=== PATIENT | female | born 1980 | race American Indian/Alaskan Native ===

== ENCOUNTER 2020-07-25 13:42 | Emergency (ER) | payer SELFPAY ==
[2020-07-25 14:58] VITALS: BP 125/81
--- NOTE | 2020-07-25 15:00 | Emergency Department Report ---
ED Upper Extremity Inj HPI - General Chief Complaint: Extremity Injury, Upper Stated Complaint: RT ARM SHOOTING PAIN Time Seen by Provider: 07/25/20 14:31 Source: patient Mode of arrival: Ambulatory Limitations: No Limitations - History of Present Illness Initial Comments: This is a 39-year-old female nontoxic, well nourished in appearance, no acute signs of distress presents to the ED with c/o of right wrist pain x 2 days. Patient stated she was heavy lifting and started to have pains and now has some radiation to right upper shoulder Patient denies any new trauma. Stated has some decreased ROM due to pain but denies joint swelling, redness, or abnormal gait. Denies any fever, chills, nausea, vomiting, headache, stiff neck, chest pain or shortness of breath. Patient denies any numbness or tingling. Denies any allergies. MD Complaint: Injury to:: right, wrist -: days(s) Other Extremity Injury: Wrist: Right Other Injuries: none Severity scale (0 -10): 3 Improves With: immobilization Worsens With: movement of extremity Associated Symptoms: denies other symptoms. denies: weakness, numbness, neck pain, suspects foreign body, nausea/vomiting, heard/felt popping sensat - Related Data Previous Rx's Medication Instructions Recorded Last Taken Type Naproxen 500 mg PO Q12H PRN #12 tablet 07/25/20 Unknown Rx Allergies Allergy/AdvReac Type Severity Reaction Status Date / Time No Known Allergies Allergy Unverified 07/25/20 14:11 ED Review of Systems ROS: Stated complaint: RT ARM SHOOTING PAIN Other details as noted in HPI Constitutional: denies: chills, fever Eyes: denies: eye pain, eye discharge, vision change ENT: denies: ear pain, throat pain Respiratory: denies: cough, shortness of breath, wheezing Cardiovascular: denies: chest pain, palpitations Endocrine: no symptoms reported Gastrointestinal: denies: abdominal pain, nausea, diarrhea Genitourinary: denies: urgency, dysuria, discharge Musculoskeletal: denies: back pain, joint swelling, arthralgia Skin: denies: rash, lesions Neurological: denies: headache, weakness, paresthesias Psychiatric: denies: anxiety, depression Hematological/Lymphatic: denies: easy bleeding, easy bruising ED Past Medical Hx - Past Medical History Previous Medical History?: No - Surgical History Past Surgical History?: No - Medications Home Medications: Home Medications Medication Instructions Recorded Confirmed Last Taken Type Naproxen 500 mg PO Q12H PRN #12 tablet 07/25/20 Unknown Rx ED Physical Exam - General Limitations: No Limitations General appearance: alert, in no apparent distress - Head Head exam: Present: atraumatic, normocephalic - Neck Neck exam: Present: normal inspection, full ROM. Absent: tenderness, meningismus, lymphadenopathy - Extremities Exam Extremities exam: Present: normal inspection, full ROM, tenderness, normal capillary refill. Absent: joint swelling - Expanded Upper Extremity Exam Right General: Present: normal inspection Shoulder Exam: Present: normal inspection, full ROM. Absent: tenderness, swelling Upper Arm exam: Present: normal inspection, full ROM. Absent: tenderness, swelling Elbow exam: Present: normal inspection, full ROM. Absent: tenderness, swelling Forearm Wrist exam: Present: normal inspection, full ROM. Absent: tenderness, swelling Hand Wrist exam: Present: full ROM, tenderness. Absent: swelling, abrasion, laceration, ecchymosis, deformity, crepidus, dislocation, erythema, amputation, nail avulsion, subungual hematoma Vascular: Present: normal capillary refill. Absent: vascular compromise ( neurovascular intact) - Back Exam Back exam: Present: normal inspection, full ROM. Absent: tenderness, CVA tenderness (R), CVA tenderness (L), muscle spasm, paraspinal tenderness, vertebral tenderness, rash noted - Neurological Exam Neurological exam: Present: alert, oriented X3, normal gait - Psychiatric Psychiatric exam: Present: normal affect, normal mood - Skin Skin exam: Present: warm, dry, intact, normal color. Absent: rash ED Course Vital Signs 07/25/20 14:56 Temperature 98.1 F Pulse Rate 98 H Blood Pressure 125/81 [Left] - Reevaluation(s) Reevaluation #1: 07/25/20 14:59 Patient is speaking in full sentences with no signs of distress noted. ED Medical Decision Making - Radiology Data Referring Physician: SAURAV CONSTANTINO Patient Name: JAMIE PHILLIPS Date of : 1980 Sex: Female Report Date: 2020-07-25 Report Status: Finalized [address] [address] XRay Report Signed Patient: JAMIE PHILLIPS MR#: [id number] : 1980 Acct:[id number] Age/Sex: 39 / F ADM Date: 07/25/20 Loc: ED Attending Dr: Ordering Physician: SAURAV CONSTANTINO NP Date of Service: 07/25/20 Procedure(s): XR wrist 3+V RT Accession Number(s): [id number] cc: SAURAV CONSTANTINO NP Fluoro Time In Minutes: RIGHT WRIST 3 VIEWS INDICATION / CLINICAL INFORMATION: wrist pain. COMPARISON: None available. FINDINGS: No significant skeletal abnormality Signer Name: Saurav Mark MD FACR Signed: 07/25/2020 4:04 PM Workstation Name: [id number] Transcribed By: MS Dictated By: Saurav Mark MD Electronically Authenticated By: Saurav Mark MD Signed Date/Time: 07/25/201603 DD/ 03 TD/TT: - Medical Decision Making This is a 39-year-old female that presents with right wrist strain. Patient is stable and was examined by me. Patient is notified of the xray results with no questions noted. Instructed to see orthoipedic for MRI. Patient was instructed to Follow-up with a orthopedic doctor in 3-5 days or if symptoms worsen and continue return to emergency room as soon as possible. At time of discharge, the patient does not seem toxic or ill in appearance. No acute signs of di stress noted. Patient agrees to discharge treatment plan of care. No further questions noted by the patient. Critical care attestation.: If time is entered above; I have spent that time in minutes in the direct care of this critically ill patient, excluding procedure time. ED Disposition Clinical Impression: Strain of right wrist Qualifiers: Encounter type: initial encounter Qualified Code(s): S66.911A - Strain of unspecified muscle, fascia and tendon at wrist and hand level, right hand, initial encounter Disposition: TO HOME OR SELFCARE Is pt being admited?: No Does the pt Need Aspirin: No Condition: Stable Instructions: RICE Therapy (ED), Wrist Injury (ED) Additional Instructions: Follow-up with a orthopedic doctor in 3-5 days or if symptoms worsen and continue return to the emergency department as soon as possible. No physical activity until cleared by orthopedic doctor. Prescriptions: Naproxen 500 mg PO Q12H PRN #12 tablet PRN Reason: Pain , Severe (7-10) Referrals: PRIMARY CARE, [Primary Care Provider] - 3-5 Days ANGIE MCDUFFIE MD [Staff Physician] - 3-5 Days Forms: Work/School Release Form(ED)
--- NOTE | 2020-07-25 16:08 | XRay Report ---
RIGHT WRIST 3 VIEWS INDICATION / CLINICAL INFORMATION: wrist pain. COMPARISON: None available. FINDINGS: No significant skeletal abnormality Signer Name: Gonzalo Mark MD FACR Signed: 07/25/2020 4:04 PM Workstation Name: [id number]
== END 2020-07-25 17:00 | disposition home or self-care (01) ==
LOC: ED 13:42
DX: S66.911A Strain of unspecified muscle, fascia and tendon at wrist and hand level, right hand, initial encounter (principal); Z79.899 Other long term (current) drug therapy; X58.XXXA Exposure to other specified factors, initial encounter; Y93.89 Activity, other specified; Y92.89 Other specified places as the place of occurrence of the external cause; Y99.8 Other external cause status
CPT/HCPCS: 99283